=== PATIENT | female | born 1980 | race African-American/Black ===

== ENCOUNTER 2018-09-27 23:21 | Emergency (ER) | payer BC, OTHER ==
[~2018-09-27] VITALS: Ht 162.6 cm; Wt 95.3 kg
[2018-09-28 01:55] VITALS: BP 97/49
== END 2018-09-28 01:57 | disposition home or self-care (01) ==
LOC: ER 23:21
DX: G35 Multiple sclerosis (principal); R20.2 Paresthesia of skin; Z91.040 Latex allergy status